=== PATIENT | female | born 1950 | race Two or more races ===

== ENCOUNTER 2016-12-24 14:17 | Emergency (ER) | payer MEDICARE ==
[~2016-12-24] VITALS: Ht 170.2 cm; Wt 120.2 kg
[2016-12-24 14:24] VITALS: BP 162/77
== END 2016-12-24 15:07 | disposition home or self-care (01) ==
LOC: ER 14:23
DX: K05.10 Chronic gingivitis, plaque induced (principal); B37.9 Candidiasis, unspecified; I10 Essential (primary) hypertension; I48.91 Unspecified atrial fibrillation; I72.9 Aneurysm of unspecified site; Z88.1 Allergy status to other antibiotic agents; Z88.8 Allergy status to other drugs, medicaments and biological substances
CPT/HCPCS: A4606; Z7610